=== PATIENT | male | born 2000 | race Caucasian/White ===

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

== ENCOUNTER 2018-04-14 16:58 | Emergency (ER) | payer MEDICAID ==
[~2018-04-14] VITALS: Ht 175.3 cm; Wt 79.4 kg
--- NOTE | 2018-04-14 17:02 | NUR ---
PT BIBRA C/O OF SEIZURE, PT IS AAOX4, NOT IN RESPIRATORY DISTRESS, KEPT RESTED AND COMFORTABLE, V/S STABLE, WILL CONTINUE TO MONITOR, AWAITING ER MD FOR EVAL.
--- NOTE | 2018-04-14 17:05 | NUR ---
HOOKED TO MONITOR,LABS DRAWNED AND SENT TO LAB.
--- NOTE | 2018-04-14 17:10 | NUR ---
MS. STEPHEN BARR PHP DEVELOPER AT BEDSIDE FOR EVAL.
[2018-04-14 17:29] LABS: BASOPHILS % (AUTO) 0.2 % (0.0-2.0); EOSINOPHILS % (AUTO) 0.1 % (0.0-6.0); HEMATOCRIT 50 % (39-51); HEMOGLOBIN 16.7 g/dL (13.5-17.5); LYMPHOCYTES # (AUTO) 2.2 /CMM (0.8-4.8); LYMPHOCYTES % (AUTO) 12.7 % (20.0-44.0); MEAN CORPUSCULAR HGB CONC 34 g/dl (31.0-36.0); MEAN CORPUSCULAR VOLUME 94 fL (80-96); MONOCYTES # (AUTO) 0.8 /CMM (0.1-1.30); MONOCYTES % (AUTO) 4.4 % (2.0-12.0); NEUTROPHILS # (AUTO) 14.7 /CMM (1.8-8.9); NEUTROPHILS % (AUTO) 82.6 % (43.0-81.0); PLATELET COUNT (AUTO) 278 /CMM (150-450); RED BLOOD CELL COUNT(AUTO) 5.31 MIL/uL (4.5-6.0); WHITE BLOOD COUNT (AUTO) 17.8 K/uL (4.3-11.0)
[2018-04-14 17:32] LABS: CALCIUM, SERUM 9.3 mg/dL (8.5-10.1); POTASSIUM 3.8 mmol/L (3.5-5.1)
[2018-04-14] MEDS ORDERED: LORAZEPAM INJ 2 MG/ML VIAL ONE (17:39)
[2018-04-14] MEDS ORDERED: LORAZEPAM INJ 2 MG/ML VIAL IV ONE (18:00)
--- NOTE | 2018-04-14 19:16 | NUR ---
REPORT GIVEN TO GONZALEZ HENDERSON FOR JULIO C.
--- NOTE | 2018-04-14 19:20 | NUR ---
RECEIVED REPORT FROM KARELY ROTH FOR JULIO C
--- NOTE | 2018-04-14 19:42 | NUR ---
Patient discharged to home in stable condition. Written and verbal after care instructions given. Patient verbalizes understanding of instruction. IV removed. Catheter intact and site benign. Pressure and 4x4 applied to site. No bleeding noted. Pt ambulatory with a steady gait. Pt instructed not to drive, pt verbalized understanding
[2018-04-14 19:43] VITALS: BP 123/67
== END 2018-04-14 19:44 | disposition home or self-care (01) ==
LOC: ER 17:00
DX: R56.9 Unspecified convulsions (principal); F12.90 Cannabis use, unspecified, uncomplicated
CPT/HCPCS: 36415; 80048-TC; 80164-TC; 85025-TC; A4606; J2060; Z7610

== ENCOUNTER 2018-06-02 10:40 | Emergency (ER) | payer SELFPAY ==
[~2018-06-02] VITALS: Ht 177.8 cm; Wt 78.5 kg
--- NOTE | 2018-06-02 10:42 | NUR ---
aaox3, bibra 78 from home c/o seizure lasted about 1 minute, witnessed by family JJ=[id number]/DL MESS COOK, oral trauma noted. RR is even and unlabored with nad noted. Skin is warm and dry. Placed on the monitor. Will continuously monitor the patient. Dr Fair at BS for eval.
[2018-06-02 10:57] LABS: BASOPHILS % (AUTO) 0.5 % (0.0-2.0); EOSINOPHILS % (AUTO) 1.9 % (0.0-6.0); HEMATOCRIT 47 % (39-51); HEMOGLOBIN 16.4 g/dL (13.5-17.5); LYMPHOCYTES # (AUTO) 2.2 /CMM (0.8-4.8); LYMPHOCYTES % (AUTO) 39.1 % (20.0-44.0); MEAN CORPUSCULAR HGB CONC 35 g/dl (31.0-36.0); MEAN CORPUSCULAR VOLUME 92 fL (80-96); MONOCYTES # (AUTO) 0.5 /CMM (0.1-1.30); MONOCYTES % (AUTO) 9.1 % (2.0-12.0); NEUTROPHILS # (AUTO) 2.7 /CMM (1.8-8.9); NEUTROPHILS % (AUTO) 49.4 % (43.0-81.0); PLATELET COUNT (AUTO) 220 /CMM (150-450); WHITE BLOOD COUNT (AUTO) 5.5 K/uL (4.3-11.0)
[2018-06-02] MEDS ORDERED: DIVALPROEX SODIUM 500 MG TABLET.DR PO ONE ×2 (10:57→11:00)
[2018-06-02 11:05] LABS: CALCIUM, SERUM 9.7 mg/dL (8.5-10.1); CREATININE 0.9 mg/dL (0.6-1.3); POTASSIUM 4.2 mmol/L (3.5-5.1)
--- NOTE | 2018-06-02 11:58 | NUR ---
CALLED [employer] TO INFORM PT ELOPEMENT WITH IV IN RIGHT AC. POLICE NOTIFIED
--- NOTE | 2018-06-02 12:09 | NUR ---
Patient discharged to home in stable condition. Written and verbal after care instructions given. Patient verbalizes understanding of instruction.
[2018-06-02 12:10] VITALS: BP 120/77
== END 2018-06-02 12:10 | disposition home or self-care (01) ==
LOC: ER 10:41
DX: G40.909 Epilepsy, unspecified, not intractable, without status epilepticus (principal); S00.512A Abrasion of oral cavity, initial encounter; Z79.899 Other long term (current) drug therapy; X58.XXXA Exposure to other specified factors, initial encounter; Y93.9 Activity, unspecified; Y92.89 Other specified places as the place of occurrence of the external cause; Y99.8 Other external cause status
CPT/HCPCS: 36415; 80048; 80164; 85025; 99283; A4606

== ENCOUNTER 2018-06-02 13:14 | Inpatient (IN) | payer MEDICAID ==
[~2018-06-02] VITALS: Ht 177.8 cm; Wt 76.7 kg
--- NOTE | 2018-06-02 13:14 | NUR ---
PT BIBRA FROM HOME FOR SEIZURE DISORDER, PER REPORT SZ LASTED 3MINS, PT AAOX4, RESPIRATIONS EVEN AND UNALABORED, NO SOB, PT ON MONITOR, NAD NOTED, VSS. PENDING ER PROVIDER HELEN
[2018-06-02] MEDS ORDERED: LEVETIRACETAM (500MG) 1,000 MG in IV NS 0.9% 100 ML IV STA (13:17)
[2018-06-02] MEDS ORDERED: IV NS 0.9% 1,000 ML BAG IV ONE (13:30)
[2018-06-02] MEDS ORDERED: DIVALPROEX SODIUM 250 MG TABLET.DR PO ONE (13:30)
[2018-06-02 13:33] LABS: BASOPHILS % (AUTO) 0.4 % (0.0-2.0); EOSINOPHILS % (AUTO) 0.6 % (0.0-6.0); HEMATOCRIT 47 % (39-51); LYMPHOCYTES # (AUTO) 2.1 /CMM (0.8-4.8); LYMPHOCYTES % (AUTO) 26.1 % (20.0-44.0); MEAN CORPUSCULAR HGB CONC 35 g/dl (31.0-36.0); MEAN CORPUSCULAR VOLUME 93 fL (80-96); MONOCYTES # (AUTO) 0.6 /CMM (0.1-1.30); MONOCYTES % (AUTO) 7.6 % (2.0-12.0); NEUTROPHILS # (AUTO) 5.3 /CMM (1.8-8.9); NEUTROPHILS % (AUTO) 65.3 % (43.0-81.0); PLATELET COUNT (AUTO) 237 /CMM (150-450); RED BLOOD CELL COUNT(AUTO) 4.98 MIL/uL (4.5-6.0); WHITE BLOOD COUNT (AUTO) 8.2 K/uL (4.3-11.0)
[2018-06-02 13:40] LABS: CALCIUM, SERUM 9.8 mg/dL (8.5-10.1); CARBON DIOXIDE 25 mmol/L (21-32); CHLORIDE 102 mmol/L (98-107); CREATININE 1.1 mg/dL (0.6-1.3); GLUCOSE 108 mg/dL (74-106); SODIUM SERUM 138 mmol/L (136-145); UREA NITROGEN, BLOOD 11 mg/dL (7-18)
[2018-06-02 13:41] LABS: POTASSIUM 3.9 mmol/L (3.5-5.1)
--- NOTE | 2018-06-02 13:42 | NUR ---
PAGED EPIC FOR PANEL - TEXTILE MACHINE OPERATOR IS JERED GUZMAN
[2018-06-02 13:45] LABS: ACETAMINOPHEN 0 ug/ml (10-30); ALCOHOL, BLOOD < 3 mg/dL (0-0); SALICYLATE 2.5 mg/dL (2.8-20.0)
[2018-06-02 13:49] LABS: CREATINE KINASE, TOTAL 206 U/L (39-308)
[2018-06-02] MEDS ORDERED: LORAZEPAM INJ 2 MG/ML VIAL IV PRN (14:30)
--- NOTE | 2018-06-02 14:34 | NUR ---
REPORT GIVEN TO ANALI ROTH FOR JULIO C
--- NOTE | 2018-06-02 14:45 | NUR ---
ANALI FROM [facility] CALLED BED NOT READY YET. PT IN THE ROOM WILL BE DC'D AND ROOM WILL BE READY. WILL CALL WHEN BED IS READY
--- NOTE | 2018-06-02 15:05 | NUR ---
SPOKE TO [facility] STAFF, BED NOT READY YET
[2018-06-02 15:30] VITALS: BP 121/65
--- NOTE | 2018-06-02 15:55 | NUR ---
TRANSFERRED TO 1ST FLOOR VIA ACLS PROTOCOL
[2018-06-02 15:57] VITALS: BP 133/60
[2018-06-02] MEDS ORDERED: DIVALPROEX SODIUM 500 MG TABLET.DR PO SCH (17:00)
--- NOTE | 2018-06-02 19:09 | NUR ---
Pt A/Ox4 and walks with a steady gait. Pt requesting to leave AMA. Patient parents at bedside and have been educated on the importance of why pt needs to stay for treatment. Pt told his patients he would stay and when parents left pt removed his tele box and his PIVs.At 1827 Dr. Joel Hobbs notified. Hospital nursing division supervisor, Ashli, also notified. finishing machine operator aware. Pt educated on why he needed to stay for treatment and still demanding on leaving. Pt signed AMA paperwork. Pt educated on the importance of taking his meds daily and if he has another seizure to come to the nearest ED. Walked patient to the front lobby. Signing off care for this pt.
== END 2018-06-02 20:17 | disposition left against medical advice (07) | DRG 53 ==
LOC: ER 13:14 → TELE1 14:19
DX: G40.909 Epilepsy, unspecified, not intractable, without status epilepticus (principal); Z91.14 Patient's other noncompliance with medication regimen
CPT/HCPCS: 36415; 70450-TC; 80048-TC; 80164-TC; 80305; 82550-TC; 84146; 84484-TC; 85025-TC; 87081-TC; G0378; G0480; J1953; J7030

== ENCOUNTER 2018-07-19 06:14 | Emergency (ER) | payer MEDICAID ==
[~2018-07-19] VITALS: Ht 177.8 cm; Wt 65.8 kg
--- NOTE | 2018-07-19 06:20 | NUR ---
PT BIB RA FROM HOME WITH A C/O SEIZURE X 2. PT HAS AN 18G IV IN RAC. IV IS NOT FLUSHING. PT STARTED SEIZING. NOTIFIED. PT IS ON THE MONITOR AND CONTINUOUS PULSE OX. PT IS ON 15L O2 ON NRB MASK.
--- NOTE | 2018-07-19 06:25 | NUR ---
18G IV STARTED IN LAC. BLOOD WAS DRAWN AND PT MEDICATED PER VERBAL ORDER FROM DR. HOWARD.
[2018-07-19] MEDS ORDERED: IV NS 0.9% 1,000 ML BAG IV ONE (06:30)
[2018-07-19] MEDS ORDERED: LORAZEPAM INJ 2 MG/ML VIAL IVP ONE (06:30)
[2018-07-19] MEDS ORDERED: LORAZEPAM INJ 2 MG/ML VIAL ONE (06:30)
--- NOTE | 2018-07-19 06:30 | NUR ---
VERBAL ORDER RECEIVED FOR ATIVAN 0.5MG IVP NOW ONCE.
--- NOTE | 2018-07-19 06:30 | NUR ---
PT HAVING ACTIVE SEIZURE, AWARE
[2018-07-19 06:45] LABS: BASOPHILS % (AUTO) 0.2 % (0.0-2.0); EOSINOPHILS % (AUTO) 1.5 % (0.0-6.0); HEMATOCRIT 53 % (39-51); HEMOGLOBIN 17.2 g/dL (13.5-17.5); LYMPHOCYTES # (AUTO) 5.8 /CMM (0.8-4.8); MEAN CORPUSCULAR HGB CONC 33 g/dl (31.0-36.0); MEAN CORPUSCULAR VOLUME 97 fL (80-96); MONOCYTES # (AUTO) 1.8 /CMM (0.1-1.30); MONOCYTES % (AUTO) 9.6 % (2.0-12.0); NEUTROPHILS # (AUTO) 10.9 /CMM (1.8-8.9); NEUTROPHILS % (AUTO) 57.7 % (43.0-81.0); PLATELET COUNT (AUTO) 216 /CMM (150-450); RED BLOOD CELL COUNT(AUTO) 5.39 MIL/uL (4.5-6.0); WHITE BLOOD COUNT (AUTO) 18.9 K/uL (4.3-11.0)
[2018-07-19 07:01] LABS: CALCIUM, SERUM 10.1 mg/dL (8.5-10.1); CREATININE 1.1 mg/dL (0.6-1.3); POTASSIUM 4.1 mmol/L (3.5-5.1)
--- NOTE | 2018-07-19 07:05 | NUR ---
PT AMBULATED OUT OF BED. PULLED OUT IV AND AMBULATED TO THE BATHROOM. AWARE.
[2018-07-19] MEDS ORDERED: DIVALPROEX SODIUM 500 MG TABLET.DR PO ONE ×3 (07:30→08:03)
[2018-07-19] MEDS ORDERED: LORAZEPAM INJ 2 MG/ML VIAL IV ONE (07:30)
--- NOTE | 2018-07-19 07:30 | NUR ---
REPORT GIVEN TO KARELY CAMPBELL RN FOR JULIO C.
--- NOTE | 2018-07-19 07:40 | NUR ---
RECEIVED REPORT FROM DORITA, PT IS ASLEEP ON BED EASILY AROUSABLE, ON SEIZURE PRECAUTION, HOOKED TO MONITOR, KEPT RESTED AND COMFORTABLE, WILL CONTINUE TO MONITOR.
--- NOTE | 2018-07-19 10:00 | NUR ---
CALLED PT'S MOM THEY WILL PICK HIM UP AROUND 1045AM.
[2018-07-19 11:46] VITALS: BP 126/81
--- NOTE | 2018-07-19 11:46 | NUR ---
IV removed. Catheter intact and site benign. Pressure and 4x4 applied to site. No bleeding noted. Patient discharged to home in stable condition. Written and verbal after care instructions given. Patient verbalizes understanding of instruction.
== END 2018-07-19 11:47 | disposition home or self-care (01) ==
LOC: ER 06:16
DX: G40.909 Epilepsy, unspecified, not intractable, without status epilepticus (principal); F12.90 Cannabis use, unspecified, uncomplicated; Z79.899 Other long term (current) drug therapy
CPT/HCPCS: 36415; 80048-TC; 80164-TC; 85025-TC; J2060; J7030

== ENCOUNTER 2018-09-03 13:01 | Emergency (ER) | payer OTHER, MEDICAID ==
[~2018-09-03] VITALS: Ht 180.3 cm; Wt 81.2 kg
--- NOTE | 2018-09-03 13:11 | NUR ---
PT MARIAN FROM [facility] FOR SZR; PT AAOX4, PT ON MONITOR, VSS, NAD NOTED, PENDING MD CERVANTES
[2018-09-03 13:39] LABS: BASOPHILS % (AUTO) 0.4 % (0.0-2.0); EOSINOPHILS % (AUTO) 0.7 % (0.0-6.0); HEMATOCRIT 46 % (39-51); HEMOGLOBIN 16.2 g/dL (13.5-17.5); LYMPHOCYTES # (AUTO) 1.4 /CMM (0.8-4.8); LYMPHOCYTES % (AUTO) 25.3 % (20.0-44.0); MEAN CORPUSCULAR HGB CONC 35 g/dl (31.0-36.0); MEAN CORPUSCULAR VOLUME 92 fL (80-96); MONOCYTES # (AUTO) 0.5 /CMM (0.1-1.30); MONOCYTES % (AUTO) 9.6 % (2.0-12.0); NEUTROPHILS # (AUTO) 3.6 /CMM (1.8-8.9); PLATELET COUNT (AUTO) 196 /CMM (150-450); RED BLOOD CELL COUNT(AUTO) 5.03 MIL/uL (4.5-6.0); WHITE BLOOD COUNT (AUTO) 5.7 K/uL (4.3-11.0)
[2018-09-03 13:50] LABS: CALCIUM, SERUM 9.4 mg/dL (8.5-10.1); CREATININE 0.9 mg/dL (0.6-1.3); POTASSIUM 4.3 mmol/L (3.5-5.1)
[2018-09-03 13:56] LABS: ALBUMIN 4.3 g/dL (3.4-5.0); BILIRUBIN,TOTAL 0.6 mg/dL (0.2-1.0); TOTAL PROTEIN, SERUM 7.6 g/dL (6.4-8.2)
[2018-09-03] MEDS ORDERED: VALPROATE 500 MG in IV NS 0.9% 100 ML IV STA (14:09)
[2018-09-03 16:17] VITALS: BP 132/80
--- NOTE | 2018-09-03 16:17 | NUR ---
Patient discharged to home in stable condition. Written and verbal after care instructions given. Patient verbalizes understanding of instruction.
== END 2018-09-03 16:18 ==
LOC: ER 13:03
DX: G40.909 Epilepsy, unspecified, not intractable, without status epilepticus (principal); Z59.0 Homelessness; Z79.899 Other long term (current) drug therapy
CPT/HCPCS: 36415; 80053; 80164; 85025; 96365; 99283; J3490; J7030

== ENCOUNTER 2018-11-15 13:38 | Emergency (ER) | payer MEDICAID, OTHER ==
[~2018-11-15] VITALS: Ht 182.9 cm; Wt 86.2 kg
[~2018-11-15 13:38] MED LIST changes: +DIVA500T2; +[UNRECOGNIZED DRUG - REMARK]
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
--- NOTE | 2018-11-15 14:11 | NUR ---
Dr. Swain at bedside for eval.
[2018-11-15] MEDS ORDERED: IV NS 0.9% 1,000 ML BAG IV ONE (14:30)
--- NOTE | 2018-11-15 14:48 | NUR ---
patient having seizure MD made aware and ordered ativan.
[2018-11-15 14:49] LABS: CALCIUM, SERUM 9.7 mg/dL (8.5-10.1); CREATININE 0.9 mg/dL (0.6-1.3); POTASSIUM 4.1 mmol/L (3.5-5.1)
[2018-11-15] MEDS ORDERED: LORAZEPAM INJ 2 MG/ML VIAL ONE (14:52)
[2018-11-15] MEDS ORDERED: LORAZEPAM INJ 2 MG/ML VIAL IV ONE (15:00)
--- NOTE | 2018-11-15 15:30 | NUR ---
Patient discharged to home in stable condition. Written and verbal after care instructions given. Patient verbalizes understanding of instruction.IV removed. Catheter intact and site benign. Pressure and 4x4 applied to site. No bleeding noted.
[2018-11-15 17:13] VITALS: BP 124/60
== END 2018-11-15 17:14 | disposition home or self-care (01) ==
LOC: ER 13:40
DX: G40.909 Epilepsy, unspecified, not intractable, without status epilepticus (principal); F12.10 Cannabis abuse, uncomplicated
CPT/HCPCS: 36415; 80048; 80164; 96374; 99283; J2060; J7030

== ENCOUNTER 2018-11-15 20:40 | Emergency (ER) | payer MEDICAID ==
[~2018-11-15] VITALS: Ht 182.9 cm; Wt 74.8 kg
[2018-11-15] MEDS ORDERED: LEVETIRACETAM (500MG) 500 MG in IV NS 0.9% 100 ML IV SCH (21:00)
[2018-11-15 21:01] LABS: BASOPHILS % (AUTO) 0.3 % (0.0-2.0); EOSINOPHILS % (AUTO) 0.1 % (0.0-6.0); HEMATOCRIT 45 % (39-51); HEMOGLOBIN 15.3 g/dL (13.5-17.5); LYMPHOCYTES # (AUTO) 1.1 /CMM (0.8-4.8); LYMPHOCYTES % (AUTO) 8.7 % (20.0-44.0); MEAN CORPUSCULAR HGB CONC 34 g/dl (31.0-36.0); MEAN CORPUSCULAR VOLUME 94 fL (80-96); MONOCYTES # (AUTO) 0.6 /CMM (0.1-1.30); MONOCYTES % (AUTO) 4.9 % (2.0-12.0); NEUTROPHILS # (AUTO) 10.9 /CMM (1.8-8.9); PLATELET COUNT (AUTO) 183 /CMM (150-450); RED BLOOD CELL COUNT(AUTO) 4.77 MIL/uL (4.5-6.0); WHITE BLOOD COUNT (AUTO) 12.6 K/uL (4.3-11.0)
--- NOTE | 2018-11-15 21:07 | NUR ---
ADDENDUM: Intravenous End Time Documentation: Keppra 1 gram IVPB: start time: 2106 pm ; end time: 2149 pm : IV site: LAC # 20 Port # 1
[2018-11-15 21:08] LABS: CALCIUM, SERUM 9.2 mg/dL (8.5-10.1); CREATININE 1.1 mg/dL (0.6-1.3); POTASSIUM 4.3 mmol/L (3.5-5.1)
[2018-11-15] MEDS ORDERED: LEVETIRACETAM (500MG) 500 MG/5 ML VIAL IV ONE (21:19)
--- NOTE | 2018-11-15 21:37 | NUR ---
END TIME FOR CT [email or web address]: [id number]
[2018-11-15 21:40] VITALS: BP 119/68
--- NOTE | 2018-11-15 21:44 | NUR ---
REPORT GIVEN TO GLORIA ON THIRD FLOOR
--- NOTE | 2018-11-15 21:48 | NUR ---
PT REFUSED TO STAY AND GET ADMITTED AT THE HOSPITAL. REGARDLESS OD THE DISCUSSION OF DR HARMAN WITH THE PT REGARDING RISK VS BENEFIT OF STAYING AT THE HOSPITAL. PT SIGNED AMA FORM
--- NOTE | 2018-11-15 21:50 | NUR ---
Patient does not wish to proceed with medical care recommended by Dr. IRIZARRY. Patient given information related to possible complications, up to and including , which could occur as a result of leaving the hospital at this time. Patient verbalizes understanding of risks involved due to leaving against medical advice. Patient has signed AMA form.
--- NOTE | 2018-11-15 21:51 | NUR ---
IV LINE WAS PULLED OUT BY THE PT PRIOR TO LEAVE
== END 2018-11-15 21:53 | disposition left against medical advice (07) ==
LOC: ER 20:40
DX: R56.9 Unspecified convulsions (principal)
CPT/HCPCS: 36415; 80048; 85025; 87081; 96365; 99283; J1953 ×2; J7030 ×2; J7040

== ENCOUNTER 2018-12-21 09:00 | Inpatient (IN) | payer MEDICAID ==
[~2018-12-21] VITALS: Ht 180.3 cm; Wt 80.7 kg
[~2018-12-21 09:00] MED LIST changes: -DIVA500T2
--- NOTE | 2018-12-21 09:20 | NUR ---
[address]IBRA[address] [facility] [address], PER REPORT WITNESSED SEIZURE X 2. +FACIAL BRUISING BG 117 REHABILITATION AIDE/SCHEDULER. PT AAOX3, RR EVEN & UNLABORED. VSS. DENIES CP, SOB, N/V, WEAKNESS @ THIS TIME. PLACED ON SEIZURE PRECAUTIONS. SEEN & EVAL'D BY DR. IRIZARRY. PLACED ON DIRT BIKE MECHANIC. WILL CONT TO MONITOR.
[2018-12-21 09:21] LABS: BASOPHILS % (AUTO) 0.4 % (0.0-2.0); HEMATOCRIT 49 % (39-51); HEMOGLOBIN 16.7 g/dL (13.5-17.5); LYMPHOCYTES # (AUTO) 2.6 /CMM (0.8-4.8); LYMPHOCYTES % (AUTO) 40.2 % (20.0-44.0); MEAN CORPUSCULAR HGB CONC 34 g/dl (31.0-36.0); MEAN CORPUSCULAR VOLUME 95 fL (80-96); MONOCYTES # (AUTO) 0.5 /CMM (0.1-1.30); MONOCYTES % (AUTO) 7.5 % (2.0-12.0); NEUTROPHILS # (AUTO) 3.2 /CMM (1.8-8.9); NEUTROPHILS % (AUTO) 50.9 % (43.0-81.0); PLATELET COUNT (AUTO) 204 /CMM (150-450); RED BLOOD CELL COUNT(AUTO) 5.15 MIL/uL (4.5-6.0); WHITE BLOOD COUNT (AUTO) 6.4 K/uL (4.3-11.0)
--- NOTE | 2018-12-21 09:27 | NUR ---
PT TO CT VIA [facility].
[2018-12-21 09:28] LABS: CALCIUM, SERUM 9.7 mg/dL (8.5-10.1); CARBON DIOXIDE 22 mmol/L (21-32); CHLORIDE 102 mmol/L (98-107); CREATININE 1.2 mg/dL (0.6-1.3); GLUCOSE 141 mg/dL (74-106); POTASSIUM 3.7 mmol/L (3.5-5.1); SODIUM SERUM 139 mmol/L (136-145); UREA NITROGEN, BLOOD 12 mg/dL (7-18)
[2018-12-21] MEDS ORDERED: IV NS 0.9% 1,000 ML BAG IV ONE (09:30)
[2018-12-21 09:33] LABS: ALANINE AMINOTRANSFERASE 16 U/L (12-78); ALBUMIN 4.5 g/dL (3.4-5.0); ALKALINE PHOSPHATASE 82 U/L (46-116); ASPARTATE AMINOTRANSFERASE 18 U/L (15-37); BILIRUBIN,DIRECT 0.2 mg/dL (0.0-0.2); BILIRUBIN,TOTAL 0.7 mg/dL (0.2-1.0); TOTAL PROTEIN, SERUM 8.3 g/dL (6.4-8.2)
[2018-12-21] MEDS ORDERED: LORAZEPAM INJ 2 MG/ML VIAL ONE (09:44)
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
[2018-12-21] MEDS ORDERED: FLUT16SP BNOSTRILS (10:00)
[2018-12-21] MEDS ORDERED: LEVETIRACETAM (500MG) 500 MG in IV NS 0.9% 100 ML IV SCH ×2 (10:00→21:00)
[2018-12-21] MEDS ORDERED: LORAZEPAM INJ 2 MG/ML VIAL IV ONE (10:00)
[2018-12-21 10:01] LABS: VALPROIC ACID 108 ug/mL (50-100)
[2018-12-21 10:04] LABS: PHENYTOIN (DILANTIN) < 0.5 ug/ml (10.0-20.0)
--- NOTE | 2018-12-21 10:52 | NUR ---
PT ASLEEP BUT EASILY AROUSED & WILL GO BACK TO SLEEP. RR EVEN & UNLABORED. NAD NOTED @ THIS TIME & WILL CONT TO MONITOR.
[2018-12-21] MEDS ORDERED: IV NS 0.9% 1,000 ML IV PRN (12:39)
--- NOTE | 2018-12-21 12:55 | NUR ---
RN NOTES REPORT RECEIVED FROM
--- NOTE | 2018-12-21 12:57 | NUR ---
REPORT GIVEN TO GONZALEZ MITCHELL FOR JULIO C.
[2018-12-21] MEDS ORDERED: ONDANSETRON HCL/PF 4 MG/2 ML VIAL IVP PRN (13:00)
[2018-12-21] MEDS ORDERED: LORAZEPAM INJ 2 MG/ML VIAL IV PRN (13:00)
[2018-12-21] MEDS ORDERED: ACETAMINOPHEN 325 MG TABLET PO PRN (13:00)
--- NOTE | 2018-12-21 13:15 | NUR ---
DIRECT MAIL COORDINATOR ADMITTING NOTES ADMITTED A 18 Y/O MALE TO UNIT VIA GURNEY AT 1300 ACCOMPANIED BY Stephanie.R NURSE DAVID. EASILY AROUSABLE. PATIENT ORIENTED TO UNIT, ROOM AND STAFF. ON ROOM AIR, NO SOB NOTED AT THIS TIME. BREATHING EVEN AND UNLABORED. V/S TAKEN AND RECORDED. PATIENT REFUSED SKIN ASSESSMENT ON THE BODY. PHOTOS OF BRUISES ON THE FACE TAKEN AND FILED ON CHART. PATIENT WITH IV ACCESS ON RIGHT AC #20. PATENT AND INTACT. IVF TO BE STARTED. SAFETY MEASURES INITIATED, BED PLACED IN LOW LOCKED POSITION WITH SIDE RAILS UP X2. CALL LIGHT WITHIN EASY REACH. WILL CONTINUE TO MONITOR.
[2018-12-21 16:00] VITALS: BP 137/69
--- NOTE | 2018-12-21 19:10 | NUR ---
RN NOTES RECEIVED PT. AWAKE ON HIS BED AND I INTRODUCED MYSELF BEFORE GETTING REPORT FROM THE [facility] NURSE..AFTER 5 MINS CHRONOMETER TESTER CALLED ME AND ASKED TO CHECKED ON THE PT. BECAUSE HEART RATE IS GOING UP TO 165.. WHEN WE WENT TO HIS ROOM PT. IS ALREADY GONE.. CHECKED EVERYWHERE BUT WE CANNOT FIND HIM .. HIS BELONGINGS WAS ALSO GONE. CALLED SECURITY AND INFORMED THEM TO CHECKED THE PT IN THE LOBBY... BLOOD SPLATTER ANALYST WENT DOWN AND FOUND THE PT IN FRONT OF SUBWAY.. BLOOD SPLATTER ANALYST TALKED TO THE PT. BUT PT. REFUSED TO COMEBACK.. BLOOD SPLATTER ANALYST JUST REMOVED THE HEART MONITOR , ARM BAND WELL THE IV ACCESS... MADE AWARE WELL THE NURSING RAIL TRACK LAYER
--- NOTE | 2018-12-21 19:11 | NUR ---
SALES & SERVICE ASSOCIATE CLOSING NOTES PATIENT IN BED RESTING COMFORTABLY IN MODERATE HIGH BACK REST. A/O X 4. ON RA, TOLERATING WELL. NO COMPLAIN OF PAIN OR DISCOMFORT THROUGHOUT THE SHIFT. NO EPISODE OF SEIZURE NOTED. IV FLUIDS ON RIGHT AC#20 WITH NS @75 ML/HR. PATENT AND INTACT. SAFETY MEASURES IN PLACE, BED IN LOW LOCKED POSITION WITH SIDE RAILS UP X2. CALL LIGHT WITHIN EASY REACH. WILL ENDORSED TO BOATBUILDER APPRENTICE WOOD NURSE FOR JULIO C.
== END 2018-12-21 19:40 | disposition left against medical advice (07) | DRG 53 ==
LOC: ER 09:02 → TELE 12:00
PROVIDERS: ADMIT Nurse Practitioner Acute Care; ATTEND Nurse Practitioner Acute Care
DX: R56.9 Unspecified convulsions (principal); S00.83XA Contusion of other part of head, initial encounter; Z91.14 Patient's other noncompliance with medication regimen; W19.XXXA Unspecified fall, initial encounter; Y93.9 Activity, unspecified; Y92.89 Other specified places as the place of occurrence of the external cause
CPT/HCPCS: 36415; 70450-TC; 80048-TC; 80076-TC; 80164-TC; 80185-TC; 85025-TC; 87081-TC; 95819-TC; G0378; J1953; J2060; J7030

== ENCOUNTER 2019-03-14 18:16 | Emergency (ER) | payer MEDICAID ==
[~2019-03-14] VITALS: Ht 180.3 cm; Wt 75.3 kg
[~2019-03-14 18:16] MED LIST changes: +FLUT16SP BNOSTRILS; -[UNRECOGNIZED DRUG - REMARK]
--- NOTE | 2019-03-14 18:22 | NUR ---
PT BIBA 860 C/O SEIZURE FROM HOME. POST ICTAL UPON ARRIVAL. PT PLACED ON THE MONITOR AND SEIZURE PRECAUTIONS. PT AAOX4, VSS, BREATHING EVEN AND UNLABORED ON ROOM AIR W/ NO ACUTE DISTRESS NOTED.
--- NOTE | 2019-03-14 18:23 | NUR ---
SEIZURE PRECATUTIONS IMPLEMENTED. IV LINE ESTABLISHED 18 G RAC. BLOOD DRAWN AND SENT TO LAB
[2019-03-14] MEDS ORDERED: LEVETIRACETAM (500MG) 500 MG in IV NS 0.9% 100 ML IV ONE (18:30)
[2019-03-14 18:37] LABS: BASOPHILS % (AUTO) 0.4 % (0.0-2.0); EOSINOPHILS % (AUTO) 0.7 % (0.0-6.0); HEMATOCRIT 47 % (39-51); HEMOGLOBIN 15.9 g/dL (13.5-17.5); LYMPHOCYTES # (AUTO) 3.8 /CMM (0.8-4.8); LYMPHOCYTES % (AUTO) 41.6 % (20.0-44.0); MEAN CORPUSCULAR HGB CONC 34 g/dl (31.0-36.0); MEAN CORPUSCULAR VOLUME 96 fL (80-96); MONOCYTES % (AUTO) 10.5 % (2.0-12.0); NEUTROPHILS # (AUTO) 4.2 /CMM (1.8-8.9); NEUTROPHILS % (AUTO) 46.8 % (43.0-81.0); PLATELET COUNT (AUTO) 205 /CMM (150-450); RED BLOOD CELL COUNT(AUTO) 4.96 MIL/uL (4.5-6.0); WHITE BLOOD COUNT (AUTO) 9.1 K/uL (4.3-11.0)
[2019-03-14 18:46] LABS: CALCIUM, SERUM 9.8 mg/dL (8.5-10.1); CREATININE 1.1 mg/dL (0.6-1.3); POTASSIUM 3.7 mmol/L (3.5-5.1)
--- NOTE | 2019-03-14 19:35 | NUR ---
REPORT GIVEN TO GONZALEZ WOODWARD
--- NOTE | 2019-03-14 20:06 | NUR ---
IV removed. Catheter intact and site benign. Pressure and 4x4 applied to site. No bleeding noted.Patient discharged to home in stable condition. RX and Written and verbal after care instructions given. Patient verbalizes understanding of instruction.
[2019-03-14 20:07] VITALS: BP 121/58
== END 2019-03-14 19:55 | disposition home or self-care (01) ==
LOC: ER 18:18
DX: R56.9 Unspecified convulsions (principal); Z79.899 Other long term (current) drug therapy
CPT/HCPCS: 36415; 80048; 80164; 85025; 96365; 99283; A6403; J1953; J7030; J7040

== ENCOUNTER 2019-04-11 10:57 | Emergency (ER) | payer MEDICAID ==
[~2019-04-11] VITALS: Ht 182.9 cm; Wt 77.1 kg
--- NOTE | 2019-04-11 11:25 | NUR ---
BIB FATHER FROM HOME, HAD SEIZURE X 2 LASTED FOR 2 MIN, NO INJURY OR TRAUMA, ON DEPAKOTE. TO ER BED 11, HOOKED TO MONITOR, CHANGED TO HOSP GOWN, SEIZURE PRECAUTIONS APPLIED. PROVIDED W WARM BLANKET, AWAITING MD CERVANTES. PATIENT AOx4, BREATHING EVEN AND UNLABORED.
--- NOTE | 2019-04-11 11:35 | NUR ---
STEVAN GARZA AT BEDSIDE
[2019-04-11] MEDS ORDERED: LEVETIRACETAM (500MG) 500 MG in IV NS 0.9% 100 ML IV ONE (12:00)
[2019-04-11] MEDS ORDERED: IV NS 0.9% 1,000 ML BAG IV ONE (12:00)
[2019-04-11 12:16] LABS: BASOPHILS % (AUTO) 0.2 % (0.0-2.0); HEMATOCRIT 45 % (39-51); HEMOGLOBIN 15.1 g/dL (13.5-17.5); LYMPHOCYTES # (AUTO) 1.3 /CMM (0.8-4.8); LYMPHOCYTES % (AUTO) 9.5 % (20.0-44.0); MEAN CORPUSCULAR HGB CONC 34 g/dl (31.0-36.0); MEAN CORPUSCULAR VOLUME 94 fL (80-96); MONOCYTES # (AUTO) 1.3 /CMM (0.1-1.30); MONOCYTES % (AUTO) 9.2 % (2.0-12.0); NEUTROPHILS # (AUTO) 11.1 /CMM (1.8-8.9); NEUTROPHILS % (AUTO) 81.1 % (43.0-81.0); PLATELET COUNT (AUTO) 193 /CMM (150-450); RED BLOOD CELL COUNT(AUTO) 4.74 MIL/uL (4.5-6.0); WHITE BLOOD COUNT (AUTO) 13.7 K/uL (4.3-11.0)
[2019-04-11 12:27] LABS: CALCIUM, SERUM 9.5 mg/dL (8.5-10.1); CREATININE 0.8 mg/dL (0.6-1.3); POTASSIUM 4.1 mmol/L (3.5-5.1)
--- NOTE | 2019-04-11 13:17 | NUR ---
SPOKE TO FATHER SAE DAVALOS, WILL NUCLEAR MEDICINE PHYSICIAN PATIENT. ETA 1400
--- NOTE | 2019-04-11 14:36 | NUR ---
IV removed. Catheter intact and site benign. Pressure and 4x4 applied to site. No bleeding noted.Patient discharged to home with father in stable condition. Written and verbal after care instructions given. Patient verbalizes understanding of instruction.
[2019-04-11 14:37] VITALS: BP 112/67
== END 2019-04-11 14:37 | disposition home or self-care (01) ==
LOC: ER 10:58
DX: G40.909 Epilepsy, unspecified, not intractable, without status epilepticus (principal); Z79.899 Other long term (current) drug therapy
CPT/HCPCS: 36415; 71045; 80048; 80164; 85025; 96365; 99284; J1953; J7030 ×3

== ENCOUNTER 2019-05-19 18:21 | Emergency (ER) | payer MEDICAID ==
[~2019-05-19] VITALS: Ht 177.8 cm; Wt 72.1 kg
[2019-05-19] MEDS ORDERED: OLANZAPINE 10 MG VIAL IM ONE ×2 (18:44→19:00)
[2019-05-19 18:52] LABS: BASOPHILS # (AUTO) 0.1 /CMM (0.0-0.2); BASOPHILS % (AUTO) 0.6 % (0.0-2.0); HEMATOCRIT 45 % (39-51); HEMOGLOBIN 15.6 g/dL (13.5-17.5); LYMPHOCYTES # (AUTO) 2.1 /CMM (0.8-4.8); LYMPHOCYTES % (AUTO) 20.6 % (20.0-44.0); MEAN CORPUSCULAR HGB CONC 34 g/dl (31.0-36.0); MEAN CORPUSCULAR VOLUME 94 fL (80-96); MONOCYTES # (AUTO) 1.8 /CMM (0.1-1.30); MONOCYTES % (AUTO) 18.1 % (2.0-12.0); NEUTROPHILS # (AUTO) 6.1 /CMM (1.8-8.9); NEUTROPHILS % (AUTO) 60.7 % (43.0-81.0); PLATELET COUNT (AUTO) 143 /CMM (150-450); WHITE BLOOD COUNT (AUTO) 10.1 K/uL (4.3-11.0)
--- NOTE | 2019-05-19 18:52 | NUR ---
PT AAOX4. KELLYA RA 102 from home WHERE THE Family noted pt had 4 seizures today. Placed on monitor and pulse ox. Pt VSS. no acute distress ntoed. Bari rodriguez.
[2019-05-19] MEDS ORDERED: INSULIN REGULAR, HUMAN 100 UNIT/ML 10 ML VIAL IV ONE (19:00)
[2019-05-19] MEDS ORDERED: IV NS 0.9% 1,000 ML BAG IV ONE (19:00)
[2019-05-19] MEDS ORDERED: LEVETIRACETAM (500MG) 1,000 MG in IV NS 0.9% 100 ML IV SCH (19:00)
[2019-05-19 19:03] LABS: CALCIUM, SERUM 9.4 mg/dL (8.5-10.1); CARBON DIOXIDE 26 mmol/L (21-32); CHLORIDE 99 mmol/L (98-107); GLUCOSE 86 mg/dL (74-106); SODIUM SERUM 138 mmol/L (136-145); UREA NITROGEN, BLOOD 11 mg/dL (7-18)
[2019-05-19 19:08] LABS: ALANINE AMINOTRANSFERASE 17 U/L (12-78); ALBUMIN 4.2 g/dL (3.4-5.0); ALCOHOL, BLOOD < 3 mg/dL (0-0); ALKALINE PHOSPHATASE 71 U/L (46-116); ASPARTATE AMINOTRANSFERASE 21 U/L (15-37); BILIRUBIN,DIRECT 0.1 mg/dL (0.0-0.2); BILIRUBIN,TOTAL 0.5 mg/dL (0.2-1.0); TOTAL PROTEIN, SERUM 8.5 g/dL (6.4-8.2)
[2019-05-19 19:11] LABS: ACETAMINOPHEN 0 ug/ml (10-30); SALICYLATE 2.2 mg/dL (2.8-20.0)
--- NOTE | 2019-05-19 19:13 | NUR ---
URINE COLLECTED AND SENT TO LAB
[2019-05-19 19:29] LABS: VALPROIC ACID 101 ug/mL (50-100)
[2019-05-19 19:35] LABS: APPEARANCE,URINE Clear (CLEAR); BILIRUBIN,URINE Negative (NEGATIVE); BLOOD, URINE Trace-lysed Ery/uL (NEGATIVE); COLOR,URINE Yellow (YELLOW); KETONES,URINE Trace (NEGATIVE); LEUKOCYTE ESTERASE ,URINE Negative (NEGATIVE); NITRITE, URINE Negative (NEGATIVE); PH,URINE 5.5 (5.0-8.0); PROTEIN,URINE Negative (NEGATIVE); UGLUCOSE Negative (NEGATIVE)
[2019-05-19 19:43] LABS: LYMPHOCYTES % (MANUAL) 13 % (16-48); MONOCYTES % (MANUAL) 28 % (0-11.0); NEUTROPHILS % (MANUAL) 59 (42-76)
[2019-05-19 19:49] LABS: RBC,URINE 0-2 /HPF (0-2)
[2019-05-19 19:50] LABS: BACTERIA,URINE Few /HPF (None Seen); MUCUS,URINE Few /LPF (None Seen); SQUAMOUS EPITHELIAL CELL,UR Few /HPF (None Seen); WBC,URINE 0-2 /HPF (0-3)
--- NOTE | 2019-05-19 20:58 | NUR ---
PATIENT SLEEPING COMFORTABLY IN BED. EASILY AROUSED. NOT IN ANY RESPIRATORY DISTRESS. NO SOB. BREATHING EVENLY AND UNLABORED.
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
[2019-05-20 04:47] VITALS: BP 115/72
== END 2019-05-19 22:46 ==
LOC: ER 18:24
DX: G40.909 Epilepsy, unspecified, not intractable, without status epilepticus (principal); Z79.899 Other long term (current) drug therapy
CPT/HCPCS: 36415; 80048; 80076; 80164; 80305; 80307; 80329; 81001; 85025; 96365; 96372; 99283; G0480; J1953; J3490; J7030 ×2; 81000-TC

== ENCOUNTER 2021-03-08 05:31 | Emergency (ER) | payer MEDICAID, OTHER ==
[~2021-03-08] VITALS: Ht 182.9 cm; Wt 81.6 kg
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
[2021-03-08 06:12] LABS: BASOPHILS % (AUTO) 0.4 % (0.0-2.0); EOSINOPHILS % (AUTO) 0.6 % (0.0-6.0); HEMATOCRIT 47 % (39-51); LYMPHOCYTES # (AUTO) 3.6 K/uL (0.8-4.8); LYMPHOCYTES % (AUTO) 35.5 % (20.0-44.0); MEAN CORPUSCULAR HGB CONC 34 g/dl (31.0-36.0); MEAN CORPUSCULAR VOLUME 94 fL (80-96); MONOCYTES # (AUTO) 0.7 K/uL (0.1-1.30); MONOCYTES % (AUTO) 7.1 % (2.0-12.0); NEUTROPHILS # (AUTO) 5.8 K/uL (1.8-8.9); NEUTROPHILS % (AUTO) 56.4 % (43.0-81.0); PLATELET COUNT (AUTO) 185 K/uL (150-450); RED BLOOD CELL COUNT(AUTO) 4.98 MIL/uL (4.5-6.0); WHITE BLOOD COUNT (AUTO) 10.2 K/uL (4.3-11.0)
--- NOTE | 2021-03-08 06:12 | NUR ---
PT TAKEN TO CT
--- NOTE | 2021-03-08 06:19 | NUR ---
RETURNED FROM CT
[2021-03-08] MEDS ORDERED: ONDANSETRON HCL/PF - ER 4 MG/2 ML VIAL IV ONE (06:30)
[2021-03-08] MEDS ORDERED: ONDANSETRON HCL/PF 4 MG/2 ML VIAL ONE (06:33)
[2021-03-08 06:39] LABS: VALPROIC ACID 60 ug/mL (50-100)
--- NOTE | 2021-03-08 07:17 | NUR ---
RECEIVED REPORT FROM GONZALEZ JAIME FOR JULIO C. PT ASLEEP ON BED EASILY AROUSABLE, NOT IN RESPIRATORY DISTRESS, V/S STABLE, KEPT RESTED AND COMFORTABLE. WILL CONTINUE TO MONITOR.
[2021-03-08 07:18] VITALS: BP 110/57
[2021-03-08 07:18] LABS: ALANINE AMINOTRANSFERASE 21 U/L (12-78); ALBUMIN 4.3 g/dL (3.4-5.0); ALCOHOL, BLOOD < 3 mg/dL (0-0); ALKALINE PHOSPHATASE 69 U/L (46-116); ASPARTATE AMINOTRANSFERASE 20 U/L (15-37); BILIRUBIN,DIRECT 0.1 mg/dL (0.0-0.2); BILIRUBIN,TOTAL 0.4 mg/dL (0.2-1.0); CALCIUM, SERUM 9.3 mg/dL (8.5-10.1); CARBON DIOXIDE 21 mmol/L (21-32); CHLORIDE 101 mmol/L (98-107); CREATININE 1.1 mg/dL (0.6-1.3); GLUCOSE 127 mg/dL (74-106); POTASSIUM 3.5 mmol/L (3.5-5.1); SODIUM SERUM 140 mmol/L (136-145); TOTAL PROTEIN, SERUM 8.3 g/dL (6.4-8.2); UREA NITROGEN, BLOOD 15 mg/dL (7-18)
--- NOTE | 2021-03-08 08:48 | NUR ---
CALLED PHARMACY FOR JUNI REEVES.
[2021-03-08] MEDS ORDERED: VALPROATE 1,000 MG in IV D5W 100 ML IV SCH (09:00)
--- NOTE | 2021-03-08 09:11 | NUR ---
CALLED [employer] SALOONKEEPER [phone] WILL ALERT UNITS IN THE AREA.
--- NOTE | 2021-03-08 09:18 | NUR ---
Patient eloped from facility. ER MD notified.
== END 2021-03-08 09:20 | disposition left against medical advice (07) ==
LOC: ER 05:32
DX: S09.8XXA Other specified injuries of head, initial encounter (principal); G40.909 Epilepsy, unspecified, not intractable, without status epilepticus; Z79.899 Other long term (current) drug therapy; X58.XXXA Exposure to other specified factors, initial encounter; Y93.89 Activity, other specified; Y92.89 Other specified places as the place of occurrence of the external cause; Y99.8 Other external cause status
CPT/HCPCS: 36415; 70450; 80048; 80076; 80164; 80320; 82962; 84484; 85025; 93005; 96374; 99285; J2405 ×2; J3490; J7060; G0480

== ENCOUNTER 2021-11-17 17:10 | Emergency (ER) | payer OTHER ==
[~2021-11-17] VITALS: Ht 172.7 cm; Wt 81.6 kg
--- NOTE | 2021-11-17 17:52 | NUR ---
BIBRA39 HOME FOR 3 SEIZURE EPISODES, PT VERBALLY RESPONSIVE SALES EFFECTIVENESS MANAGER. NO HEAD, ORAL TRAUMA ENDORSED. BG 86 SALES EFFECTIVENESS MANAGER. ATTACHED TO MONITOR. VITALS ARE WITHIN NORMAL LIMITS, NOT RESP DISTRESS NOTED. AWAITING ORDERS.
[2021-11-17] MEDS ORDERED: LEVE500T19 PO (18:11)
[2021-11-17] MEDS ORDERED: LEVETIRACETAM (250 MG) 250 MG TABLET PO ONE ×2 (18:23→18:30)
--- NOTE | 2021-11-17 19:23 | NUR ---
IV removed. Catheter intact and site benign. Pressure and 4x4 applied to site. No bleeding noted.Patient discharged to home in stable condition. Written and verbal after care instructions given. Patient verbalizes understanding of instruction.
[2021-11-17 19:45] VITALS: BP 129/80
== END 2021-11-17 20:16 | disposition home or self-care (01) ==
LOC: ER 17:30
DX: G40.909 Epilepsy, unspecified, not intractable, without status epilepticus (principal); F12.90 Cannabis use, unspecified, uncomplicated; Z79.899 Other long term (current) drug therapy

== ENCOUNTER 2022-02-13 18:10 | Emergency (ER) | payer OTHER ==
[~2022-02-13] VITALS: Ht 175.3 cm; Wt 68.0 kg
[~2022-02-13 18:10] MED LIST changes: -DIVA500T2 PO; -FLUT16SP BNOSTRILS; +LEVE500T19 PO
[2022-02-13 18:14] VITALS: BP 139/83
[2022-02-13] MEDS ORDERED: LEVETIRACETAM (250 MG) 250 MG TABLET PO ONE (18:30)
--- NOTE | 2022-02-13 18:32 | NUR ---
CALLED [employer], SPOKE WITH REGIONAL CRA [phone]. REPORTED PATIENT ELOPEMENT WITH IV ACCESS.
== END 2022-02-13 18:33 | disposition left against medical advice (07) ==
LOC: ER 18:12
DX: G40.909 Epilepsy, unspecified, not intractable, without status epilepticus (principal); Z79.899 Other long term (current) drug therapy

== ENCOUNTER 2023-03-10 09:52 | Emergency (ER) | payer OTHER ==
[~2023-03-10] VITALS: Ht 177.8 cm; Wt 90.7 kg
[2023-03-10] MEDS ORDERED: FAMOTIDINE/PF INJ 20 MG/2 ML VIAL IV ONE ×2 (10:50→11:00)
[2023-03-10] MEDS ORDERED: ONDANSETRON HCL/PF 4 MG/2 ML VIAL ONE (10:50)
[2023-03-10] MEDS ORDERED: IV NS 0.9% 1,000 ML BAG IV ONE (11:00)
[2023-03-10] MEDS ORDERED: ONDANSETRON HCL/PF 4 MG/2 ML VIAL IVP ONE (11:00)
[2023-03-10 11:36] VITALS: BP 131/74; TEMP 98; O2SAT 98
== END 2023-03-10 11:36 | disposition home or self-care (01) ==
LOC: ER 09:55
DX: R56.9 Unspecified convulsions (principal)
CPT/HCPCS: 99284; 96374; 96361; 96375; J3490; J2405; J7030